=== PATIENT | female | born 1975 | race Caucasian/White ===

== ENCOUNTER 2020-04-28 08:53 | Outpatient (CLI) | payer MEDICAID ==
[~2020-04-28 08:53] MED LIST: NO HOME MEDS; PRED20TA PO
== END 2020-04-28 23:59 | disposition home or self-care (01) ==
LOC: RAD 08:53
PROVIDERS: ATTEND Physician Assistant
DX: R56.9 Unspecified convulsions (principal)
CPT/HCPCS: 95816

== ENCOUNTER 2023-03-29 15:06 | Emergency (ER) | payer MEDICAID ==
[~2023-03-29] VITALS: Ht 154.9 cm; Wt 60.0 kg
[2023-03-29 15:22] VITALS: BP 148/105
--- NOTE | 2023-03-29 15:28 | NUR ---
BESSY JENKINS. LOG NUMBER [id number]
[2023-03-29] MEDS ORDERED: IBUP-860 PO (17:00)
== END 2023-03-29 17:05 | disposition home or self-care (01) ==
LOC: ER 15:06
DX: S00.31XA Abrasion of nose, initial encounter (principal); Y04.8XXA Assault by other bodily force, initial encounter; Y93.89 Activity, other specified; Y92.89 Other specified places as the place of occurrence of the external cause; Y99.8 Other external cause status
CPT/HCPCS: 99282; A6223; A6446; A6449

== ENCOUNTER 2023-07-15 16:44 | Emergency (ER) | payer MEDICAID ==
[~2023-07-15] VITALS: Ht 162.6 cm; Wt 54.9 kg
[~2023-07-15 16:44] MED LIST changes: +IBUP-860 PO
[2023-07-15 16:53] VITALS: BP 147/99; RESP 16; TEMP 97.7; O2SAT 97
[2023-07-15 17:02] VITALS: PULSE 96
== END 2023-07-15 17:09 | disposition home or self-care (01) ==
LOC: ER 16:44
DX: R21 Rash and other nonspecific skin eruption (principal); F15.10 Other stimulant abuse, uncomplicated; Z56.0 Unemployment, unspecified; Z87.81 Personal history of (healed) traumatic fracture
CPT/HCPCS: 99283

== ENCOUNTER 2023-12-25 14:13 | Emergency (ER) | payer MEDICAID, OTHER ==
[~2023-12-25] VITALS: Ht 154.9 cm; Wt 54.5 kg
[2023-12-25 14:29] VITALS: BP 114/87; PULSE 116; RESP 18; TEMP 100.1; O2SAT 94
[2023-12-25 14:47] LABS: URINE HCG NEGATIVE (NEG)
[2023-12-25 14:49] LABS: BILIRUBIN,URINE MODERATE (Neg); CLARITY,URINE SLIGHTLY CLOUDY (Clear); COLOR,URINE YELLOW (Yellow); GLUCOSE, URINE NEGATIVE (Neg); KETONES,URINE 15 mg/dl (Neg); LEUKOCYTE ESTERASE ,URINE NEGATIVE (Neg); NITRITES, URINE NEGATIVE (Neg); OCCULT BLOOD,URINE NEGATIVE (Neg); PROTEIN,URINE TRACE mg/dl (Neg); UROBILINOGEN,URINE >=8.0 E.U/dL (0.2-1.0)
[2023-12-25 14:55] LABS: MUCUS STRANDS MANY /LPF (Neg); SQUAMOUS EPITHELIAL CELL,UR MANY /LPF (FEW); UA COLLECTION TYPE CLN CATCH MIDSTREAM
[2023-12-25 14:56] LABS: AMORPHOUS URATES 1+; BACTERIA,URINE FEW /HPF (Neg); TRANSITIONAL EPI CELLS,URINE FEW /HPF; WBC,URINE 0-4 /HPF (0-4)
[2023-12-25 14:59] LABS: BASOPHILS % (AUTO) 0.1 % (0-1); EOSINOPHILS % (AUTO) 0 % (0-6); HEMATOCRIT 41.3 % (35.0-45.0); LYMPHOCYTES % (AUTO) 14.7 % (21-51); MEAN CORPUSCULAR HEMOGLOBIN 29.9 PG (27.0-31.0); MEAN CORPUSCULAR VOLUME 87.8 FL (78-98); MONOCYTES % (AUTO) 7.3 % (2-12); NEUTROPHILS # (AUTO) 10.6 X10'3 (1.8-7.7); NEUTROPHILS % (AUTO) 77.9 % (42-75); PLATELET COUNT 158 X10'3 (140-440); RED CELL DISTRIBUTION WIDTH 15.2 % (11.5-14.5); WHITE BLOOD COUNT 13.6 X10'3 (4.5-11.0)
[2023-12-25 15:08] LABS: ALANINE AMINOTRANSFERASE 17 U/L (12-78); ALBUMIN 2.7 G/DL (3.4-5.0); ALBUMIN/GLOBULIN RATIO 0.6 (1.1-1.5); ALKALINE PHOSPHATASE 96 IU/L (46-116); ANION GAP 12 (8-16); ASPARTATE AMINO TRANSFERASE 15 U/L (10-37); BILIRUBIN,TOTAL 0.6 MG/DL (0.1-1.0); BLOOD UREA NITROGEN 7 MG/DL (7-18); BUN/CREATININE RATIO 7.7 (10.0-20.0); CALCIUM 8.3 MG/DL (8.5-10.1); CHLORIDE 99 MMOL/L (99-107); CREATININE 0.91 MG/DL (0.40-0.90); GLUCOSE 160 MG/DL (70-104); LIPASE 18 U/L (16-77); POTASSIUM 3.3 MMOL/L (3.5-5.1); SODIUM 134 MMOL/L (135-145); TOTAL CARBON DIOXIDE 22.7 MMOL/L (24-32); TOTAL PROTEIN 7.4 G/DL (6.4-8.2); eCRCL 56 ML/MIN; eGFR 66 ML/MIN
== END 2023-12-25 19:28 | disposition left against medical advice (07) ==
LOC: ER 14:14
DX: R07.89 Other chest pain (principal); Z53.21 Procedure and treatment not carried out due to patient leaving prior to being seen by health care provider
CPT/HCPCS: 36415; 80053; 81001; 81025; 83690; 84484; 85025; 93005; 99281